=== PATIENT | male | born 1995 | race African-American/Black ===

== ENCOUNTER 2019-06-10 18:30 | Emergency (ER) | payer OTHER ==
[~2019-06-10] VITALS: Ht 175.3 cm; Wt 86.2 kg
[2019-06-10 18:39] VITALS: BP 154/85
== END 2019-06-10 19:04 | disposition home or self-care (01) ==
LOC: ER 18:30
DX: R51 Headache (principal); V89.2XXA Person injured in unspecified motor-vehicle accident, traffic, initial encounter; Y93.89 Activity, other specified; Y92.488 Other paved roadways as the place of occurrence of the external cause; Y99.8 Other external cause status